=== PATIENT | male | born 1960 | race Caucasian/White ===

== ENCOUNTER 2019-04-14 22:28 | Emergency (ER) | payer OTHER ==
--- NOTE | 2019-04-14 22:31 | PDOC ---
History of Present Illness - General Chief Complaint: Pain Stated Complaint: HEADACHE ALL DAY,HYPERTENSION Time Seen by Provider: 04/14/19 22:29 History Source: Patient Exam Limitations: No Limitations - History of Present Illness Initial Comments: 04/14/19 22:30 HPI 59 YOM with h/o HTN, HLD, migraines and sinus headache presenting with left sided retro-orbital and temporal headache since this morning, a/w left eye tearing and nasal congestion and photosensitivity. Pain described as localized to the left side of his head and orbits, "pressure" and 9/10; he has tried nasal decongestants such as afrin, Nyquil tonight, tylenol and nsaid, without relief; last dose of medication at 6pm, not sure of which he used. he has also tried nettipot. pt has h/o migraines , last about 1 year ago and used to be more frequent. he also has h/o seasonal sinus headaches during the winter, but usually resolves with nasal decongestants, which today made his headache worse. pt has also noted he has elevated BP the last several days, 160s/100s - has PMD appointment in 4 days to visit about his rising BP that he has been noticing at home. Denies fever, chills, neck stiffness, ear pain, sore throat, hoarse voice, difficulty swallowing, visual or hearing disturbances, vision loss, tinnitis, chest pain, SOB, palpitation, dizziness, weakness, N, V, D, abdominal pain, bladder and bowel problems, focal weakness/paresthesias, leg swelling/pain, rash. No sick contacts or travel. No new changes in medications. No suspicious food intake. denies exacerbating or alleviating factors. Allergies: None Past Medical History/PSH: as above Social history: Lives with family. No tobacco, or drug use. occ etoh social drinker Meds: as documented in EMR Family history: h/o stroke, no h/o CAD PMD: Dr Galo Review of systems Constitutional: no fevers or chills. No weakness HEENT: +headache, +eye pain and tearing, +nasal congestion, No dizziness. No visual/hearing disturbances. no sore throat, no ear pain, no vision loss, no eye redness. no hoarse voice or throat pain or difficulty swallowing. CVS: no cp or syncope. Resp: no sob. No cough. Gastrointestinal: no abdominal pain, nausea, vomiting, diarrhea. Genitourinary: no urinary sx, hematuria. MUSCULOSKELETAL: No joint pain and swelling. No neck or back pain. no neck stiffness SKIN: no redness or skin changes, no discharge, no rash. No wounds. Hematologic: no easy bruising/bleeding. NEUROLOGIC: +headache. No dizziness, LOC or altered mental status. No weakness, numbness or tingling. Psych: no anxiety or depression Allergic/Immunologic: no allergies All other systems reviewed and negative, or as documented in HPI. Physical exam General: Well appearing, awake and alert, NAD. HEENT: NCAT, PERRL, EOMI, clear conjunctiva, anicteric, moist mucus membranes, clear oropharynx, no oral lesions.. b/l T.M and auditory canal clear. Neck: neck supple, FROM, no meningismus, neg brudzinksi or kernig's Resp: CTAB, normal and even respirations, no respiratory distress CVS: RRR, no murmurs, 2+ peripheral pulses throughout, no peripheral edema Abdomen: soft, NTND, no rebound or guarding. Back: nontender, normal inspection and ROM MSK: no edema, MONSALVE x4, ROM intact. No clubbing or cyanosis. normal bulk and tone. Extremities: no calf tenderness NEURO: Alert, awake, appropriate. Cranial nerves 2-12 intact. No deficits to light touch and temperature in face, upper extremities and lower extremities. No motor deficits in the in face, upper extremities and lower extremities. No pronator drift. Normoreflexic in the upper and lower extremities. Normal speech. Toes are down-going bilaterally. Gait is normal without ataxia. No dysmetria. No dysdiadochokinesis. No skew deviation. No abnormal nystagmus. Psych: Calm and cooperative Skin: warm and well perfused, cap refill <2 sec, normal color, no rash or skin discoloration. 04/14/19 22:45 04/14/19 23:07 04/14/19 23:10 04/15/19 00:15 04/15/19 00:18 Past History - Past Medical History Allergies/Adverse Reactions: Allergies Allergy/AdvReac Type Severity Reaction Status Date / Time No Known Allergies Allergy Verified 04/14/19 22:29 Home Medications: Ambulatory Orders Simvastatin [Zocor -] 40 mg PO AM 06/01/13 Losartan Potassium 25 mg PO DAILY 04/14/19 Metoclopramide HCl [Reglan -] 10 mg PO TID PRN #9 tablet 04/15/19 Hypercholesterolemia: Yes - Immunization History Immunization Up to Date: No - Psycho Social/Smoking Cessation Hx Smoking History: Never smoked Have you smoked in the past 12 months: No Hx Alcohol Use: Yes (SOCIAL) Drug/Substance Use Hx: No Substance Use Type: None Medical Decision Making - Medical Decision Making 04/14/19 22:51 Vital Signs Temp Pulse Resp BP Pulse Ox 98.7 F 63 16 182/114 H 100 04/14/19 22:32 04/14/19 22:32 04/14/19 22:32 04/14/19 22:32 04/14/19 22:32 DDX headache: migraine, tension, cluster headache, SAH, CVA, head bleed/ICH. VS reviewed, +HTN noted, but pt also in pain with severe headache. will treat with analgesia and repeat MDM: The patient presents with an acute onset headache for approx 12 hours in duration. Patient has past history of headaches including seasonal sinus headaches and migraines, last migraine attack 1 year ago.. There is no a history of anticoagulation, trauma, cancer or immunocompromised state. Mental status was normal, no neurological deficits were noted. Differential Diagnosis considered includes hypertensive emergency, subarachnoid hemorrhage, meningitis , trauma, CVA, migraine, tension, cluster TOPETE. CTH to eval for mass/cva, given his age, medical problems and severe headache different than usual. CT head was negative for acute bleed, infarct, mass, or shift. LP was performed and was negative for WBC or xanthochromia/consistent with The patient improved significantly and was discharged in stable condition. Recommendations were given for follow-up with PCP in 1-2 days and to return to the ED for worsening of headache or any other concerns Based on the patient's history and physical and imaging there is very low clinical suspicion for significant intracranial pathology. The headache was NOT sudden onset, NOT maximal at onset, there are NO neurologic findings or focal deficits visual or hearing changes, slurring of speech, vertigo, gait instability/ataxia. the patient does NOT have a fever, the patient does NOT have any jaw claudication, the patient does NOT endorse a clotting disorder, patient DENIES any trauma or eye pain and the headache is NOT associated with dizziness or ataxia. Kernig and Brudzinski signs are negative, no petechiae, no photophobia, no dysarthria, no facial asymmetry, and no focal deficits. Very low clinical suspicion for meningitis. 04/14/19 23:07 - rpt VS 164/98 - downtrending, reassuring. IV was placed and reglan/tylenol with IVF/NRB O2 with significant relief of symptoms. headache 3/10 most likely cluster headache with UL features, and improvement with NRB O2 pt has PMD followup in 4 days for management of his BP, pt aware of his HTN and knows to get clinical recheck with his PMD. neuro referrals given for follow up of the headache. Pt to be discharged in stable condition. Patient and family made aware of clinical impression, treatment recommendations and disposition plan, return precautions discussed (including but not limited to new or persistent/worsening symptoms, pain, fevers, or signs of infection, chest pain, respiratory distress , inability to tolerate oral intake, dehydration, syncope, or neurologic changes ). Follow up with PMD and/or neuro specialist as recommended, follow up information provided, take medications as instructed for duration of time. continue with supportive care, avoid triggers and precipitants. All questions answered to patient's satisfaction and expressed understanding and comfort with this. At the time of discharge, the patient is alert, clinically improved, tolerating po and verbalizes understanding of instructions, satisfied with the care received and felt comfortable with the plan. Patient does not suffer from an acute life-threatening medical condition at this time and is safe for outpatient follow-up. 04/15/19 00:08 04/15/19 00:16 Discharge - Discharge Information Problems reviewed: Yes Clinical Impression/Diagnosis: Hypertension Qualifiers: Hypertension type: unspecified Qualified Code(s): I10 - Essential (primary) hypertension Headache Qualifiers: Headache type: unspecified Headache chronicity pattern: acute headache Intractability: not intractable Qualified Code(s): R51 - Headache Condition: Stable - Admission No - Additional Discharge Information Prescriptions: Metoclopramide HCl [Reglan -] 10 mg PO TID PRN #9 tablet PRN Reason: Headache - Follow up/Referral Referrals: Fanta Galo MD [Primary Care Provider] - Jason Keene MD [Staff Physician] - Petey Kapoor MD [Staff Physician] - Severino Chin MD [Staff Physician] - - Patient Discharge Instructions Patient Printed Discharge Instructions: DI for High Blood Pressure, DI for Sinus Headache, DI for Cluster Headache Additional Instructions: 1) Please follow-up with your primary care doctor in the next 1-2 days. Please call tomorrow for for any urgent issues. you should also make appointment to see a neurologist 2) You were given a copy of the tests performed today. Please bring the results with you and review them with your primary care doctor. Your imaging results were normal, including CT of your head. please follow up with your doctor about your high blood pressure, this was likely related to pain/headache, but this should be rechecked as you're on medications to control. avoid stress, salty food, fatty foods and excessive caffeine that could increase your blood pressure 3) If you have any worsening of symptoms or any other concerns please return to the ED immediately. Return if worsening symptoms including fevers, headache, vomiting, visual or hearing disturbances, abdominal pain, chest pain, shortness of breath, syncope, dehydration, inability to take things by mouth/vomiting, altered mental status, or worsening concerning symptoms. 4) Please continue taking your home medications as directed. your medications on discharge include reglan tid as needed for headache, you can also take over the counter tylenol and/or nsaids (aleve, advil, ibuprofen) . side effects may include upset stomach, abdominal pain, vomiting, or diarrhea. do not drink alcohol with your medications. Stay well hydrated and rest adequately. Make an appointment. If you cannot follow-up with your primary care doctor please return to the ED - Post Discharge Activity
[2019-04-14 22:37] VITALS: BMI 25.7
[2019-04-14] MEDS ORDERED: ACETAMINOPHEN 1000 MG/100 ML VIAL (NON FORMULARY) IVPB ONE (22:44)
[2019-04-14] MEDS ORDERED: METOCLOPRAMIDE HCL INJECTION 10 MG/2 ML VIAL IVPUSH ONE (22:44)
[2019-04-14] MEDS ORDERED: METOCLOPRAMIDE HCL INJECTION 10 MG/2 ML VIAL ONE (22:50)
[2019-04-14] MEDS ORDERED: ACETAMINOPHEN INJECTION 100 ML IVPB ONE (22:50)
[2019-04-14] MEDS ORDERED: SODIUM CHLORIDE 0.9% 500 ML INFUS.BAG IV ONE (23:06)
[2019-04-15 00:21] VITALS: BP 164/98; PULSE 64; TEMP 98.4
== END 2019-04-15 00:37 | disposition home or self-care (01) ==
LOC: FER 22:28
PROC: 3E033NZ Introduction of Analgesics, Hypnotics, Sedatives into Peripheral Vein, Percutaneous Approach (ICD-10-PCS; principal; 2019-04-14)
PROC: 3E033GC Introduction of Other Therapeutic Substance into Peripheral Vein, Percutaneous Approach (ICD-10-PCS; 2019-04-14)
DX: I10 Essential (primary) hypertension (principal); R51 Headache; E78.5 Hyperlipidemia, unspecified
CPT/HCPCS: 70450-TC; 99284-25; J0131

== ENCOUNTER 2023-06-16 22:50 | Emergency (ER) | payer OTHER ==
[2023-06-16] MEDS ORDERED: cefTRIAXone SODIUM 1 GM VIAL ONE (23:22)
[2023-06-16] MEDS ORDERED: VANCOMYCIN 1,000 MG VIAL (RESTRICTED TO ID ONLY) ONE (23:22)
[2023-06-16] MEDS: CEFTRIAXONE 1 GM in DEXTROSE 5%-WATER - 50 ML IVPB ONE (23:35)
[2023-06-16 23:39] LABS: HEMATOCRIT 42.2 % (35.4-49); HEMOGLOBIN 14.1 G/dL (11.7-16.9); MCH 32.7 pg (25.7-33.7); MCHC 33.4 g/dl (32.0-35.9); MEAN CELL VOLUME 97.8 fl (80-96); MEAN PLT VOLUME 9.3 fl (7.5-11.1); PLATELET COUNT 176.1 10^3/uL (134-434); RBC 4.31 10^6/uL (4.00-5.60); RDW 13.5 % (11.9-15.9)
[2023-06-16 23:44] LABS: PLATELET ESTIMATE ADEQUATE
[2023-06-16 23:51] VITALS: BP 113/74; PULSE 67; RESP 16; TEMP 99; BMI 25.7
[2023-06-16 23:53] LABS: ALBUMIN 4.1 g/dl (3.4-5.0); BILIRUBIN,TOTAL 0.7 mg/dl (0.2-1); CALCIUM 8.9 mg/dl (8.5-10.1); CREATININE 1.5 mg/dl (0.6-1.3); POTASSIUM 3.9 mmol/L (3.5-5.1); TOT PROT 6.3 g/dl (6.4-8.2)
[2023-06-17] MEDS: VANCOMYCIN 1,000 MG in DEXTROSE 5%-WATER - 250 ML IVPB ONE (00:23)
[2023-06-17 00:54] LABS: ERYTHROCYTE SEDIMENTATION RATE 3 mm/hr (0-20)
== END 2023-06-17 02:01 | disposition home or self-care (01) ==
LOC: FER 22:50
DX: M25.422 Effusion, left elbow (principal); L03.114 Cellulitis of left upper limb; W00.0XXA Fall on same level due to ice and snow, initial encounter
CPT/HCPCS: 36415; 73070-TC-LT-FY; 80053; 85025; 85651; 86140; 99284-25